=== PATIENT | male | born 1980 | race Caucasian/White ===

== ENCOUNTER 2016-07-10 11:47 | Emergency (ER) | payer OTHER ==
--- NOTE | ~2016-07-10 | ER ---
PATIENT'S NAME: JIMBO ONEIL [facility] AGE: 36 Y [address] ROOM: [place] [address] LOCATION: [facility] ADMIT DATE: 07/10/2016 ER/Outpatient Report DISCHARGE DATE: 07/10/2016 FAMILY PHYSICIAN: Physician, Unknown ATTENDING PHYSICIAN: La Nena Richardson SEEN AT: 1205 hours. CHIEF COMPLAINT: Right flank pain. HISTORY OF PRESENT ILLNESS: The patient is a 36-year-old male. The patient was brought in by the [facility] Department. The patient is currently incarcerated. The patient today started having right flank pain radiating to his groin. He said he vomited x1. The patient has a history of previous kidney stones. ALLERGIES: NONE. HOME MEDICATIONS: None. PAST MEDICAL HISTORY: Includes history of kidney stones and hypertension. PAST SURGICAL HISTORY: Include appendectomy, ruptured. SOCIAL HISTORY: Nonsmoker. Beer occasionally. Currently in senior care for child support missed payments. REVIEW OF SYSTEMS: Today, GENERAL: No recent fever or chills. HEAD/EENT: No recent headache or sore throat. RESPIRATORY: Negative. CARDIOVASCULAR: Negative. GASTROINTESTINAL: Includes right flank lower abdominal pain. No constipation. No diarrhea. GENITOURINARY: No dysuria. PHYSICAL EXAMINATION: PATIENT'S NAME: JIMBO ONEIL [facility] AGE: 36 Y [address] ROOM: [place] [address] LOCATION: [facility] ADMIT DATE: 07/10/2016 ER/Outpatient Report DISCHARGE DATE: 07/10/2016 FAMILY PHYSICIAN: Physician, Unknown ATTENDING PHYSICIAN: La Nena Richardson VITAL SIGNS: His blood pressure is 158/95, his temperature 97.8, his respiratory rate 20, pulse 70, and O2 saturation is 98%. GENERAL APPEARANCE: A white male, does not appear to be in any severe distress. He is oriented. HEAD/EENT: His sclerae are clear. His teeth are in good repair. His oral membranes moist. LUNGS: Clear at the base. HEART: Tones distant, regular. ABDOMEN: Soft. No guarding. No rebound. Appears slightly tender over the right flank. LABORATORY AND DIAGNOSTIC DATA: His urine was positive for blood and white cells. No nitrites. CBC: White count was 7.6, his hemoglobin 15.9, and his ANC was 5.2. CMS: He had slightly elevated ALT at 86. Otherwise, normal values. CT, stone protocol, did show a stone in the right proximal ureter. There was some hydro present. ASSESSMENT: 1. Right proximal ureteral stone, 4 mm. 2. Previous history of kidney stones. 3. History of hypertension. PLAN: Saline lock was placed here in the emergency room. He was given 30 of Toradol which did improve his pain. The patient will be discharged back to the [facility] with a script for [place] 1 or 2 every 4 to 6 hours severe pain, Flomax 0.4 mg daily, and Phenergan 25 mg tablets for nausea one every 6 hours. Encouraged fluids. Strain urine. Recommend he follow up with Urology in the next couple of days if this stone does not pass. The patient verbalized understanding of our CT report, findings, and recommendations and agreed. ARLEY BAJWA FOR MD FARIDEH MCCORMICK/sanjeev /[id number] P d: 07/10/16 1526 t: 07/13/16 0922, OUTPATIENT REPORT
[2016-07-10 12:20] LABS: BILIRUBIN URINE NEGATIVE (NEGATIVE); BLOOD URINE 50 /UL (NEGATIVE); GLUCOSE URINE NEGATIVE (NEGATIVE); KETONE URINE NEGATIVE (NEGATIVE); LEUKOCYTES URINE 25 /UL (NEGATIVE); NITRITE URINE NEGATIVE (NEGATIVE); PROTEIN URINE 15 mg/dL (NEGATIVE); UROBILINOGEN URINE NORMAL (NORMAL)
[2016-07-10 12:21] LABS: COLOR URINE YELLOW (YELLOW); TURBIDITY URINE CLEAR (CLEAR)
[2016-07-10 12:24] LABS: BASOPHIL % 0.5 %; EOSINOPHIL # 0.2 K/uL (0.0-0.5); EOSINOPHIL % 2.2 %; HEMATOCRIT 46.3 % (37.0-53.0); HEMOGLOBIN 15.9 g/dL (12.0-17.0); IMMATURE GRANULOCYTE % 0.1 %; LYMPHOCYTE # 1.5 K/uL (0.8-4.0); LYMPHOCYTE % 19.3 %; MCH 31.7 pg (27.0-34.0); MCHC 34.3 gm/dL (32.0-36.5); MCV 92.4 fl (83.0-98.0); MONOCYTE # 0.7 K/uL (0.0-1.0); MONOCYTE % 8.9 %; NEUTROPHIL # (ANC) 5.2 K/uL (1.4-9.0); NRBC % 0 /100WBC (0-0.00); PLATELET COUNT 178 K/uL (150-450); RBC 5.01 M/uL (4.00-6.00); RDW-CV 11.6 % (11.9-14.6); WBC 7.6 K/uL (4.0-11.0)
[2016-07-10 12:29] LABS: AMORPHOUS URINE 1+ (NEGATIVE); BACTERIA URINE NEGATIVE (NEGATIVE); EPITHELIAL URINE NEGATIVE #/HPF (NEGATIVE); MUCUS URINE 1+ (NEGATIVE); RBC URINE 20-50 #/HPF (NEGATIVE)
[2016-07-10 12:39] LABS: ALBUMIN 4.1 gm/dL (3.5-5.0); ALK PHOS 74 IU/L (33-138); ALT 86 IU/L (12-78); ANION GAP 14.5 (10.0-19.0); AST 24 IU/L (10-40); BLOOD UREA NITROGEN 11 mg/dL (6-24); CALCIUM 9.3 mg/dL (8.5-10.5); CHLORIDE 104 mMol/L (96-110); CO2 25 mMol/L (22-32); CREATININE 1.2 mg/dL (0.6-1.3); ESTIMATED GFR (MDRD EQUATION) > 60; POTASSIUM 4.5 mMol/L (3.7-5.1); SODIUM 139 mMol/L (135-145); TOTAL BILIRUBIN 0.4 mg/dL (0.0-1.5); TOTAL PROTEIN 6.8 g/dL (6.0-8.4)
== END 2016-07-10 13:17 | disposition disaster alternative care site (69) ==
LOC: GMED 11:47
PROVIDERS: Family Medicine; Physician Assistant Medical
DX: N13.2 Hydronephrosis with renal and ureteral calculous obstruction (principal); I10 Essential (primary) hypertension; Z90.49 Acquired absence of other specified parts of digestive tract
CPT/HCPCS: J1885